=== PATIENT | male | born 1955 | race Caucasian/White ===

== ENCOUNTER → 2017-01-15 | Outpatient (CLI) | payer BC ==
[~2017-01-15] MED LIST: AMBIEN CR12.5 MG PO; ASPIR 8181 M1 PO; ATORVASTATIN CA20 MG PO; Benadryl PO; CELEBREX200 MG PO; CLOBETASOL 0.05% TP; COMBIVENT RESPIM4 GM IH; Colace PO; DEPAKOTE ER500 MG PO; Depakote ER (Extende PO; Ecotrin PO; FEOSOL325 MG PO; FLOMAX0.4 MG PO; KLONOPIN0.5 M1 PO; LOPROX 0.77% TP; LORTAB 5-325 M1 EACH PO; MELOXICAM15 MG PO; METOPROLOL SUCC25 MG PO; MODAFINIL200 MG PO; MOTRIN600 MG PO; NEURONTIN300 MG PO; NITROGLYCERIN0.4 MG SL; Neurontin PO; Percocet 5/325,Endoc PO; SENOKOT S,PE1 TABLET PO
== END | disposition home or self-care (01) ==
LOC: NUC 10:47
DX: R93.7 Abnormal findings on diagnostic imaging of other parts of musculoskeletal system (principal); Z98.890 Other specified postprocedural states; Z96.651 Presence of right artificial knee joint
CPT/HCPCS: 78315; A9503

== ENCOUNTER → 2017-04-18 | Outpatient (CLI) | payer BC | END | disposition home or self-care (01) | LOC: CT 10:24 | DX: J21.9 Acute bronchiolitis, unspecified (principal); R91.1 Solitary pulmonary nodule; R59.0 Localized enlarged lymph nodes; J43.9 Emphysema, unspecified; Z95.1 Presence of aortocoronary bypass graft; R07.89 Other chest pain | CPT/HCPCS: 71275 ==